=== PATIENT | male | born 1955 | race Caucasian/White ===

== ENCOUNTER 2016-07-14 06:09 | Emergency (ER) | payer OTHER | END 2016-07-14 09:56 | disposition home or self-care (01) | LOC: ER 06:09 | DX: E11.65 Type 2 diabetes mellitus with hyperglycemia (principal); R06.02 Shortness of breath; R51 Headache; I11.0 Hypertensive heart disease with heart failure; I50.9 Heart failure, unspecified; E78.5 Hyperlipidemia, unspecified; Z87.442 Personal history of urinary calculi; Z79.84 Long term (current) use of oral hypoglycemic drugs | CPT/HCPCS: 36415; 96360 ==

== ENCOUNTER 2016-07-17 14:42 | Emergency (ER) | payer OTHER | END 2016-07-17 16:32 | disposition home or self-care (01) | LOC: ER 14:42 | DX: E11.65 Type 2 diabetes mellitus with hyperglycemia (principal); I11.0 Hypertensive heart disease with heart failure; I50.9 Heart failure, unspecified; E66.9 Obesity, unspecified; E78.00 Pure hypercholesterolemia, unspecified; Z87.442 Personal history of urinary calculi; Z79.84 Long term (current) use of oral hypoglycemic drugs | CPT/HCPCS: 36415; 96360 ==